=== PATIENT | female | born 1955 | race Caucasian/White ===

== ENCOUNTER 2020-06-02 19:21 | Emergency (ER) | payer BC, SELFPAY ==
--- NOTE | 2020-06-02 20:37 | RAD ---
RIGHT SHOULDER THREE VIEWS: 06/02/20 HISTORY: Right shoulder pain status post fall. Some slight deformity to the distal end of the clavicle with slight irregularity to the cortex suspic ious for a nondisplaced distal clavicular fracture. Mild arthritic changes of the shoulder are noted. No rib fractures visualized. IMPRESSION: Findings suspicious for a possible nondisplaced distal clavicular fracture. Clinical correlation is r ecommended as to the exact area of patient's pain. It is possible this is sequela of an old injury. POS: [facility]
[2020-06-02] MEDS ORDERED: Ketorolac Tromethamine 30 MG/ML VIAL ONE (22:33)
[2020-06-02] MEDS ORDERED: traMADol HCl 50 MG TAB ONE (22:33)
== END 2020-06-02 22:59 | disposition home or self-care (01) ==
LOC: ERS 19:21
DX: S42.031A Displaced fracture of lateral end of right clavicle, initial encounter for closed fracture (principal); E11.9 Type 2 diabetes mellitus without complications; I10 Essential (primary) hypertension; W17.89XA Other fall from one level to another, initial encounter
CPT/HCPCS: 96372; J1885